=== PATIENT | female | born 1990 | race Caucasian/White ===

== ENCOUNTER 2018-09-26 01:05 | Emergency (ER) | payer OTHER ==
[~2018-09-26] VITALS: Ht 162.6 cm; Wt 65.8 kg
[2018-09-26 01:11] VITALS: BP 133/86
[2018-09-26 01:47] LABS: HEMOGLOBIN 10.8 g/dL (12.0-16.0)
[2018-09-26 01:53] LABS: BASOPHILS % (AUTO) 0.2 % (0.0-2.0); EOSINOPHILS # (AUTO) 0.1 K/uL (0-0.4); HEMATOCRIT 32.2 % (36-48); LYMPHOCYTES # (AUTO) 2.1 K/uL (2.5-16.5); LYMPHOCYTES % (AUTO) 14.7 % (20.5-51.1); MEAN CORPUSCULAR HEMOGLOBIN 31 pg (27-31); MEAN CORPUSCULAR HGB CONC 34 g/dL (33-37); MEAN CORPUSCULAR VOLUME 92.7 fL (80-94); MONOCYTES # (AUTO) 1.1 K/uL (0.8-1.0); MONOCYTES % (AUTO) 7.9 % (1.7-9.3); NEUTROPHILS # (AUTO) 10.7 K/uL (1.8-7.7); NEUTROPHILS % (AUTO) 76.2 % (42.2-75.2); PLATELET COUNT (AUTO) 271 K/uL (140-450); RED BLOOD CELL COUNT(AUTO) 3.48 MIL/uL (4.20-5.40); RED CELL DISTRIBUTION WIDTH 12.4 % (11.6-13.7)
[2018-09-26 01:59] LABS: ANION GAP 13.5 (8-16); CARBON DIOXIDE 25.9 mmol/L (21-32); CREATININE 0.5 mg/dL (0.6-1.3); POTASSIUM 3.4 mmol/L (3.5-5.1)
[2018-09-26 02:00] LABS: APPEARANCE,URINE CLOUDY (CLEAR); BILIRUBIN,URINE NEGATIVE (NEGATIVE); BLOOD, URINE 3+ (NEGATIVE); COLOR,URINE YELLOW (YELLOW); LEUKOCYTE ESTERASE ,URINE 2+ (NEGATIVE); NITRITE, URINE NEGATIVE (NEGATIVE); UGLUCOSE NEGATIVE (NEGATIVE)
[2018-09-26 02:13] LABS: RBC,URINE TOO NUMEROUS TO COUN /HPF (0-5); WBC,URINE TOO MANY TO COUNT /HPF (0-5); YEAST,URINE Many /HPF (None Seen)
[2018-09-26 02:49] VITALS: BP 133/86
== END 2018-09-26 02:50 | disposition home or self-care (01) ==
LOC: MED 01:05
DX: O23.41 Unspecified infection of urinary tract in pregnancy, first trimester (principal); O99.011 Anemia complicating pregnancy, first trimester; K59.00 Constipation, unspecified; O99.280 Endocrine, nutritional and metabolic diseases complicating pregnancy, unspecified trimester; Z3A.01 Less than 8 weeks gestation of pregnancy
CPT/HCPCS: 36415; 76700; 76817; 80048; 81001; 81025; 84702; 85025; 86900; 86901; 87086; 99284; Q0092

== ENCOUNTER 2018-11-17 21:02 | Emergency (ER) | payer SELFPAY ==
[~2018-11-17] VITALS: Ht 162.6 cm; Wt 68.0 kg
[2018-11-17 21:11] VITALS: BP 124/56
--- NOTE | 2018-11-17 21:17 | NUR ---
PT AMBULATED TO BED 11 WITH VSS.
--- NOTE | 2018-11-17 21:26 | NUR ---
PT BIB FAMILY FOR ABD PAIN X1 DAY. PT REPORTS "POKING" RUQ PAIN AT 9/10 THAT HAS BEEN INCREASING SINCE THIS MONRINING. PT DENIES N/V/D OR FEVER, LAST BM TODAY. 2, PARA 0. PT STATES SHE WAS RECENTLY DIAGNOSED WITH CLHAMYDIA, BUT FINISHED TREATMENT AND TESTED NEGATIVE AT LAST DR APPOINTMENT. ER MD TO SEE PT. SIDE RAILS UP X1, BED IN LOWEST POSITION, WILL CONTINUE TO MONITOR. RX: VITAMINS, FOLIC ACID
[2018-11-17] MEDS ORDERED: ACETAMINOPHEN EXTRA STRENGTH 500 MG TAB PO ONE (21:30)
--- NOTE | 2018-11-17 21:39 | NUR ---
US AT BEDSIDE AT THIS TIME.
[2018-11-17 22:17] LABS: BASOPHILS % (AUTO) 0.4 % (0.0-2.0); EOSINOPHILS # (AUTO) 0.2 K/uL (0-0.4); EOSINOPHILS % (AUTO) 2.7 % (0.0-4.0); HEMOGLOBIN 9.8 g/dL (12.0-16.0); LYMPHOCYTES % (AUTO) 23.2 % (20.5-51.1); MEAN CORPUSCULAR HEMOGLOBIN 31 pg (27-31); MEAN CORPUSCULAR HGB CONC 34 g/dL (33-37); MEAN CORPUSCULAR VOLUME 92.9 fL (80-94); MONOCYTES # (AUTO) 0.7 K/uL (0.8-1.0); MONOCYTES % (AUTO) 8.1 % (1.7-9.3); NEUTROPHILS # (AUTO) 5.6 K/uL (1.8-7.7); NEUTROPHILS % (AUTO) 65.6 % (42.2-75.2); PLATELET COUNT (AUTO) 217 K/uL (140-450); RED BLOOD CELL COUNT(AUTO) 3.12 MIL/uL (4.20-5.40); RED CELL DISTRIBUTION WIDTH 13.4 % (11.6-13.7); WHITE BLOOD COUNT (AUTO) 8.5 K/uL (4.8-10.8)
[2018-11-17 22:24] LABS: APPEARANCE,URINE CLEAR (CLEAR); BILIRUBIN,URINE NEGATIVE (NEGATIVE); BLOOD, URINE 3+ (NEGATIVE); COLOR,URINE YELLOW (YELLOW); LEUKOCYTE ESTERASE ,URINE NEGATIVE (NEGATIVE); NITRITE, URINE NEGATIVE (NEGATIVE); UGLUCOSE NEGATIVE (NEGATIVE)
[2018-11-17 22:26] LABS: ANION GAP 7.7 (8-16); CARBON DIOXIDE 26.7 mmol/L (21-32); CREATININE 0.7 mg/dL (0.6-1.3); POTASSIUM 3.4 mmol/L (3.5-5.1)
[2018-11-17 22:32] LABS: ALBUMIN 3.1 g/dL (3.4-5.0); TOTAL BILIRUBIN 0.2 mg/dL (0.0-1.0)
[2018-11-17 22:40] LABS: RBC,URINE 50-80 /HPF (0-5); WBC,URINE 0-5 (RARE) /HPF (0-5)
[2018-11-17 22:52] VITALS: BP 130/55
--- NOTE | 2018-11-17 22:52 | NUR ---
Patient discharged with v/s stable. Written and verbal after care instructions given and explained. Patient verbalized understanding. Ambulatory with steady gait. All questions addressed prior to discharge. Advised to follow up with [employer] [employer]IST[facility].
[2018-11-20 06:21] LABS: CHLAMYDIA TRACHOMATIS AMP DNA Negative (Negative)
== END 2018-11-17 22:53 | disposition home or self-care (01) ==
LOC: MED 21:02
DX: O26.892 Other specified pregnancy related conditions, second trimester (principal); R10.11 Right upper quadrant pain; O99.012 Anemia complicating pregnancy, second trimester; Z3A.16 16 weeks gestation of pregnancy
CPT/HCPCS: 36415; 76705; 80053; 81001; 81025; 83690; 85025; 87491; 99284; Q0092

== ENCOUNTER 2024-02-28 15:59 | Emergency (ER) | payer MEDICAID ==
[~2024-02-28] VITALS: Ht 162.6 cm; Wt 81.6 kg
[2024-02-28 16:12] VITALS: BP 128/84; PULSE 90; RESP 18; TEMP 98.4; O2SAT 98
[2024-02-28] MEDS: IBUPROFEN 600 MG TAB PO ONE (16:34)
[2024-02-28] MEDS ORDERED: IBUP-2213 PO (17:11)
[2024-02-28 17:31] VITALS: BP 130/82; PULSE 88; RESP 16; TEMP 98.4; O2SAT 99
== END 2024-02-28 17:31 | disposition home or self-care (01) ==
LOC: MED 15:59
DX: S50.02XA Contusion of left elbow, initial encounter (principal); Z79.1 Long term (current) use of non-steroidal anti-inflammatories (NSAID); W01.0XXA Fall on same level from slipping, tripping and stumbling without subsequent striking against object, initial encounter; Y93.89 Activity, other specified; Y92.89 Other specified places as the place of occurrence of the external cause; Y99.8 Other external cause status
CPT/HCPCS: 73080; 99283

== ENCOUNTER 2024-03-06 22:28 | Emergency (ER) | payer MEDICAID ==
[~2024-03-06 22:28] MED LIST: IBUP-2213 PO
== END 2024-03-06 23:35 | disposition left against medical advice (07) ==
LOC: MED 22:28
DX: M79.603 Pain in arm, unspecified (principal); Z53.21 Procedure and treatment not carried out due to patient leaving prior to being seen by health care provider